=== PATIENT | male | born 2000 | race Caucasian/White ===

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

== ENCOUNTER 2021-02-27 05:13 | Emergency (ER) | payer OTHER ==
[2021-02-27 05:52] LABS: HEMOGLOBIN 15.5 gm/dl (14.0-17.5); RED BLOOD COUNT 5.04 M/UL (4.20-5.50); WHITE BLOOD COUNT 13.9 K/UL (4.5-11.0)
[2021-02-27 06:07] LABS: BUN/CREATININE RATIO 9 (0-10)
== END 2021-02-27 15:30 | disposition left against medical advice (07) ==
LOC: ER1 05:13
PROVIDERS: Physician Assistant
DX: R41.82 Altered mental status, unspecified (principal); R00.0 Tachycardia, unspecified; K21.9 Gastro-esophageal reflux disease without esophagitis; I10 Essential (primary) hypertension; F41.9 Anxiety disorder, unspecified; E87.2 Acidosis; Z20.822 Contact with and (suspected) exposure to COVID-19
CPT/HCPCS: 70450; 71045; 80048; 80307; 81001; 82550; 82553; 83605; 83874; 84484; 85025; 87040; 93005; 96374; 99285; G0480; J0696; J7030; U0002